=== PATIENT | female | born 1965 | race Caucasian/White ===

== ENCOUNTER 2019-05-01 01:16 | Emergency (ER) | payer BC, OTHER ==
[2019-05-01] MEDS ORDERED: SODIUM CHLORIDE 0.9% 1000ML 2,000 ML IV ONE (01:49)
[2019-05-01] MEDS ORDERED: KETOROLAC TROMETHAMINE 30MG/ML ONE (01:49)
[2019-05-01 02:02] LABS: BASOPHILS % (AUTO) 0.2 % (0.0-5.0); EOSINOPHILS % (AUTO) 3.8 % (0.0-8.0); HEMATOCRIT 45.9 % (36-48); LYMPHOCYTES % (AUTO) 35.1 % (21.0-51.0); MEAN CORPUSCULAR HEMOGLOBIN 26.5 pg (27.0-33.0); MEAN CORPUSCULAR HGB CONC 32.9 g/dL (32.0-36.0); MEAN CORPUSCULAR VOLUME 80.6 fL (79-99); MONOCYTES % (AUTO) 10.1 % (3.0-13.0); NEUTROPHILS % (AUTO) 50.8 % (40.0-77.0); PLATELET COUNT (AUTO) 236 K/uL (130-400); RED CELL DISTRIBUTION WIDTH 16.5 % (11.0-15.5); WHITE BLOOD COUNT (AUTO) 8.2 K/uL (4.8-10.8)
[2019-05-01 02:10] LABS: APPEARANCE,URINE CLEAR (CLEAR); BILIRUBIN,URINE NEGATIVE (NEGATIVE); COLOR,URINE YELLOW (YELLOW); GLUCOSE, URINE (UA) NEGATIVE (NEGATIVE); KETONES,URINE 15 mg/dL (NEGATIVE); LEUKOCYTE ESTERASE ,URINE NEGATIVE (NEGATIVE); NITRATE,URINE NEGATIVE (NEGATIVE); OCCULT BLOOD,URINE NEGATIVE (NEGATIVE); PROTEIN,URINE NEGATIVE (NEGATIVE); UROBILINOGEN,URINE 0.2 mg/dL (0.2-1.0)
[2019-05-01 02:18] LABS: CREATININE 0.8 mg/dL (0.5-1.5); HCG,QUAL RESULT NEGATIVE (NEGATIVE)
[2019-05-01 02:23] LABS: ALBUMIN 3.6 g/dL (3.5-5.0); BILIRUBIN,TOTAL 0.3 mg/dL (0.2-1.0); TOTAL PROTEIN, SERUM 7.6 g/dL (6.0-8.3)
[2019-05-01] MEDS ORDERED: ORPHENADRINE CITRATE 30 MG/ML ML ONE (02:32)
[2019-05-01] MEDS ORDERED: LIDOCAINE 5% TOPICAL PATCH TP ONE (02:32)
== END 2019-05-01 03:39 | disposition home or self-care (01) ==
LOC: EDH 01:16
DX: M62.830 Muscle spasm of back (principal); M54.5 Low back pain; M54.6 Pain in thoracic spine; I25.10 Atherosclerotic heart disease of native coronary artery without angina pectoris; E07.9 Disorder of thyroid, unspecified; Z79.899 Other long term (current) drug therapy
CPT/HCPCS: 36415; 72070; 80053; 81003; 81025; 83690; 85025; 96374; 96375; 99285; J1885; J2360; J7030

== ENCOUNTER → 2020-12-28 | Outpatient (CLI) | payer BC | END | disposition home or self-care (01) | LOC: OIH 13:44 | PROVIDERS: ATTEND Allergy & Immunology | DX: J18.8 Other pneumonia, unspecified organism (principal); I51.7 Cardiomegaly; R91.8 Other nonspecific abnormal finding of lung field; J45.40 Moderate persistent asthma, uncomplicated | CPT/HCPCS: 71046 ==

== ENCOUNTER → 2021-01-19 | Outpatient (CLI) | payer BC ==
[~2021-01-19] MED LIST: IOHEXOL-350 75 ML VIAL IV ONE
== END | disposition home or self-care (01) ==
LOC: RAH 12:38
PROVIDERS: ATTEND Internal Medicine
DX: R91.8 Other nonspecific abnormal finding of lung field (principal); R59.0 Localized enlarged lymph nodes; J45.909 Unspecified asthma, uncomplicated; R06.00 Dyspnea, unspecified; R06.02 Shortness of breath; J98.11 Atelectasis; I51.7 Cardiomegaly
CPT/HCPCS: 71270; Q9967

== ENCOUNTER 2021-02-19 21:35 | Inpatient (IN) | payer BC ==
[~2021-02-19] VITALS: Ht 172.7 cm; Wt 200.7 kg
[2021-02-19 22:49] LABS: BASOPHILS % (AUTO) 0.2 % (0.0-5.0); EOSINOPHILS % (AUTO) 32.9 % (0.0-8.0); HEMATOCRIT 35.5 % (36-48); LYMPHOCYTES % (AUTO) 14.7 % (21.0-51.0); MEAN CORPUSCULAR HEMOGLOBIN 21.7 pg (27.0-33.0); MEAN CORPUSCULAR HGB CONC 29.6 g/dL (32.0-36.0); MEAN CORPUSCULAR VOLUME 73.3 fL (79-99); MONOCYTES % (AUTO) 8.2 % (3.0-13.0); NEUTROPHILS % (AUTO) 43.6 % (40.0-77.0); PLATELET COUNT (AUTO) 406 K/uL (130-400); RED BLOOD CELL COUNT(AUTO) 4.84 MIL/uL (4.00-5.50); RED CELL DISTRIBUTION WIDTH 20.4 % (11.0-15.5); WHITE BLOOD COUNT (AUTO) 13.1 K/uL (4.8-10.8)
[2021-02-19 22:59] LABS: ABG BASE EXCESS 4.5 mmol/L (-2.0-3.0); ABG HCO3 29.8 mmol/L (21.0-28.0); ABG OXYGEN SATURATION 91.6 % (95.0-99.0); ABG PCO2 46 mmHg (32-45)
[2021-02-19 23:01] LABS: POTASSIUM 3.4 mmol/L (3.5-5.1)
[2021-02-19 23:06] LABS: ALBUMIN 3.2 g/dL (3.5-5.0); BILIRUBIN,TOTAL 0.4 mg/dL (0.2-1.0); TOTAL PROTEIN, SERUM 8.4 g/dL (6.0-8.3)
[2021-02-19] MEDS ORDERED: FUROSEMIDE 40MG VIAL ONE (23:09)
[2021-02-19 23:10] LABS: INR 1.11 (0.85-1.15)
[2021-02-19 23:26] LABS: B-TYPE NATRIURETIC PEPTIDE 242 pg/mL (0-100)
[2021-02-19] MEDS ORDERED: ASPIRIN 325 MG TABLET ONE (23:46)
[2021-02-19] MEDS ORDERED: ALBUTEROL INHALER 90MCG/INH IH ONE (23:46)
[2021-02-19] MEDS ORDERED: AZITHROMYCIN 500MG+NS 250ML 250 ML IV ONE (23:55)
[2021-02-19] MEDS ORDERED: CEFTRIAXONE 1G VIAL ONE (23:55)
[2021-02-20 00:20] LABS: APPEARANCE,URINE Clear (CLEAR); BILIRUBIN,URINE Negative (NEGATIVE); COLOR,URINE Yellow (YELLOW); GLUCOSE, URINE (UA) Negative (NEGATIVE); KETONES,URINE Negative (NEGATIVE); LEUKOCYTE ESTERASE ,URINE Trace (NEGATIVE); NITRATE,URINE Negative (NEGATIVE); OCCULT BLOOD,URINE Negative (NEGATIVE); PROTEIN,URINE Negative (NEGATIVE); UROBILINOGEN,URINE 0.2 mg/dL (0.2-1.0)
[2021-02-20 00:33] LABS: AMPHET/METH SCREEN,URINE NEGATIVE (NEGATIVE); BACTERIA,URINE None Seen /HPF (None Seen); BARBITURATE SCREEN, URINE NEGATIVE (NEGATIVE); BENZODIAZEPINES SCREEN,URINE NEGATIVE (NEGATIVE); CANNABINOID SCREEN,URINE NEGATIVE (NEGATIVE); COCAINE SCREEN,URINE NEGATIVE (NEGATIVE); OPIATE SCREEN,URINE NEGATIVE (NEGATIVE); PHENCYCLIDINE SCREEN,URINE NEGATIVE (NEGATIVE); RBC,URINE None Seen /HPF (0-1); WBC,URINE 0-1 /HPF (0-1)
[2021-02-20] MEDS ORDERED: LACTULOSE 20 GM/30 ML UDCUP PO PRN (01:00)
[2021-02-20] MEDS: SOLU-MEDROL 125MG VIAL IV SCH ×3 (01:00→16:30)
[2021-02-20] MEDS ORDERED: DIPHENHYDRAMINE HCL 25 MG CAPSULE PO PRN (01:00)
[2021-02-20] MEDS ORDERED: ONDANSETRON 4MG INJ IV PRN (01:00)
[2021-02-20] MEDS: METOPROLOL TARTRATE 25 MG TAB PO SCH ×3 (01:00→21:00)
[2021-02-20] MEDS ORDERED: GUAIFENESIN-DM 200/20 MG 10 ML PO PRN (01:00)
[2021-02-20] MEDS ORDERED: MAG/ALUM/SIMETH 30 ML UDCUP PO PRN (01:00)
[2021-02-20] MEDS ORDERED: ACETAMINOPHEN 325 MG TAB PO PRN ×2 (01:00)
[2021-02-20] MEDS ORDERED: DiphenhydrAMINE HCL 50 MG/ML VIAL IV PRN (01:00)
[2021-02-20] MEDS ORDERED: NITROGLYCERIN 0.4 MG SL TAB SL PRN (01:00)
[2021-02-20] MEDS ORDERED: HEPARIN 25,000 UNITS/250ML D5W 250 ML IV SCH (01:15)
[2021-02-20] MEDS: MONTELUKAST SODIUM 10 MG TAB PO SCH ×2 (01:15→21:00)
[2021-02-20] MEDS ORDERED: HEPARIN 25,000 UNITS/250ML D5W 250 ML IV ONE (01:18)
[2021-02-20] MEDS ORDERED: HEPARIN 5,000 UNIT VIAL ONE (01:19)
[2021-02-20] MEDS: IPRATROPIUM/ALBUTEROL SULFATE 3 ML SOLUTION IH SCH ×3 (02:00→22:00)
[2021-02-20] MEDS ORDERED: SOLU-MEDROL 40MG VIAL ONE (02:21)
[2021-02-20] MEDS ORDERED: METOPROLOL TARTRATE 25 MG TAB ONE (02:22)
[2021-02-20 04:00] VITALS: BP 134/84
[2021-02-20 05:42] LABS: BASOPHILS % (AUTO) 0.2 % (0.0-5.0); EOSINOPHILS % (AUTO) 25.8 % (0.0-8.0); HEMATOCRIT 35.3 % (36-48); LYMPHOCYTES % (AUTO) 8.2 % (21.0-51.0); MEAN CORPUSCULAR HEMOGLOBIN 21.6 pg (27.0-33.0); MEAN CORPUSCULAR HGB CONC 29.7 g/dL (32.0-36.0); MEAN CORPUSCULAR VOLUME 72.8 fL (79-99); MONOCYTES % (AUTO) 5.8 % (3.0-13.0); NEUTROPHILS % (AUTO) 59.4 % (40.0-77.0); PLATELET COUNT (AUTO) 370 K/uL (130-400); RED BLOOD CELL COUNT(AUTO) 4.85 MIL/uL (4.00-5.50)
[2021-02-20 06:21] LABS: BILIRUBIN,TOTAL 0.4 mg/dL (0.2-1.0); CREATININE 0.8 mg/dL (0.5-1.5); POTASSIUM 3.9 mmol/L (3.5-5.1)
[2021-02-20] MEDS: FUROSEMIDE 40MG VIAL IVP SCH ×2 (07:41→21:08)
[2021-02-20] MEDS: ASPIRIN 325 MG TABLET PO SCH (07:41)
[2021-02-20 08:00] VITALS: BP 144/89
[2021-02-20] MEDS ORDERED: FAMOTIDINE 20MG VIAL IV SCH (09:00)
[2021-02-20] MEDS ORDERED: HEPARIN 5,000 UNIT VIAL SQ SCH (09:00)
[2021-02-20 09:48] LABS: INR 1.29 (0.85-1.15); PROTHROMBIN TIME 13.7 SEC (9.6-11.6)
[2021-02-20] MEDS ORDERED: HYDR-3830 PO (09:48)
[2021-02-20] MEDS ORDERED: MONT10TA21 PO (09:48)
[2021-02-20] MEDS ORDERED: [UNRECOGNIZED DRUG - OTHER] PO (09:48)
[2021-02-20] MEDS ORDERED: THYR120T2 PO (09:48)
[2021-02-20] MEDS ORDERED: CETI10TA57 PO (09:48)
[2021-02-20] MEDS ORDERED: FLUT1BLS15 IH (09:48)
[2021-02-20] MEDS ORDERED: ASPI-1197 PO (09:48)
[2021-02-20] MEDS ORDERED: METO25TA6 PO (09:48)
[2021-02-20] MEDS ORDERED: MAGN30TA2 PO (09:48)
[2021-02-20] MEDS ORDERED: PANT40TA PO (09:48)
[2021-02-20 10:39] LABS: PARTIAL THROMBOPLASTIN TIME 19.5 SEC (26.3-35.5)
[2021-02-20 11:38] VITALS: BP 126/75
[2021-02-20] MEDS: ENOXAPARIN SODIUM 120 MG/0.8ML SQ SCH ×2 (11:55→21:10)
[2021-02-20] MEDS: ENOXAPARIN SODIUM 30 MG/0.3 ML SQ SCH ×2 (11:55→21:11)
[2021-02-20 16:00] VITALS: BP 124/81
[2021-02-20 19:29] VITALS: BP 152/74
[2021-02-20] MEDS: HYDROXYZINE 10 MG TABLET PO SCH (21:00)
[2021-02-20] MEDS ORDERED: MONTELUKAST SODIUM 10 MG TAB PO SCH (21:00)
[2021-02-20] MEDS: MAGNESIUM PO SCH (21:00)
[2021-02-20] MEDS: ENOXAPARIN SODIUM 1 MG/KG SQ SCH (21:00)
[2021-02-20 23:57] VITALS: BP 104/50
[2021-02-21] MEDS: SOLU-MEDROL 125MG VIAL IV SCH ×4 (00:50→23:47)
[2021-02-21] MEDS: IPRATROPIUM/ALBUTEROL SULFATE 3 ML SOLUTION IH SCH (02:00)
[2021-02-21 03:33] VITALS: BP 142/58
[2021-02-21 05:36] LABS: BASOPHILS % (AUTO) 0.1 % (0.0-5.0); EOSINOPHILS % (AUTO) 0.1 % (0.0-8.0); HEMATOCRIT 32.9 % (36-48); LYMPHOCYTES % (AUTO) 7.3 % (21.0-51.0); MEAN CORPUSCULAR HEMOGLOBIN 21.7 pg (27.0-33.0); MEAN CORPUSCULAR HGB CONC 29.8 g/dL (32.0-36.0); MEAN CORPUSCULAR VOLUME 72.9 fL (79-99); MONOCYTES % (AUTO) 4.3 % (3.0-13.0); NEUTROPHILS % (AUTO) 87.5 % (40.0-77.0); PLATELET COUNT (AUTO) 352 K/uL (130-400); RED BLOOD CELL COUNT(AUTO) 4.51 MIL/uL (4.00-5.50); RED CELL DISTRIBUTION WIDTH 19.9 % (11.0-15.5); WHITE BLOOD COUNT (AUTO) 11.8 K/uL (4.8-10.8)
[2021-02-21 05:55] LABS: ALBUMIN 2.9 g/dL (3.5-5.0); BILIRUBIN,TOTAL 0.4 mg/dL (0.2-1.0); CREATININE 0.9 mg/dL (0.5-1.5); TOTAL PROTEIN, SERUM 7.6 g/dL (6.0-8.3)
[2021-02-21] MEDS ORDERED: THYROID PORK 120 MG PO SCH (07:30)
[2021-02-21 08:00] VITALS: BP 112/66
[2021-02-21] MEDS: (Fluticasone/Umeclidin/Vilanter (Trelegy Ellipta 200-62.5- IH SCH (08:45)
[2021-02-21] MEDS: ASPIRIN 325 MG TABLET PO SCH (08:46)
[2021-02-21] MEDS: FUROSEMIDE 40MG VIAL IVP SCH ×2 (08:46→20:03)
[2021-02-21] MEDS: METOPROLOL TARTRATE 25 MG TAB PO SCH ×2 (08:46→20:12)
[2021-02-21] MEDS: ENOXAPARIN SODIUM 30 MG/0.3 ML SQ SCH ×2 (08:47→20:13)
[2021-02-21] MEDS: ENOXAPARIN SODIUM 120 MG/0.8ML SQ SCH ×2 (08:47→20:13)
[2021-02-21] MEDS: ENOXAPARIN SODIUM 1 MG/KG SQ SCH ×2 (08:48→20:13)
[2021-02-21] MEDS: PANTOPRAZOLE 40 MG TAB DR PO SCH (08:48)
[2021-02-21] MEDS: MAGNESIUM PO SCH ×2 (08:48→20:12)
[2021-02-21] MEDS ORDERED: VILANTER IH SCH (09:00)
[2021-02-21] MEDS ORDERED: FLUTICASONE IH SCH (09:00)
[2021-02-21] MEDS ORDERED: [UNRECOGNIZED DRUG - OTHER] IH SCH (09:00)
[2021-02-21] MEDS ORDERED: UMECLIDIN IH SCH (09:00)
[2021-02-21] MEDS: FLUTICASONE PROPIONATE 50MCG/SPRAY 16 GM BOTTLE EN SCH ×2 (10:09→20:14)
[2021-02-21 11:47] VITALS: BP 135/76
[2021-02-21] MEDS ORDERED: IPRATROPIUM/ALBUTEROL SULFATE 3 ML SOLUTION IH PRN (12:00)
[2021-02-21] MEDS ORDERED: REGADENOSON 0.4 MG/5 ML PF SYG IVP SCH (15:30)
[2021-02-21 16:00] VITALS: BP 102/58
[2021-02-21] MEDS ORDERED: DiphenhydrAMINE HCL 50 MG/ML VIAL IVP PRN (18:45)
[2021-02-21 19:55] LABS: HEMATOCRIT 34.9 % (36-48); MEAN CORPUSCULAR HEMOGLOBIN 21.8 pg (27.0-33.0); MEAN CORPUSCULAR HGB CONC 29.8 g/dL (32.0-36.0); MEAN CORPUSCULAR VOLUME 73.2 fL (79-99); RED BLOOD CELL COUNT(AUTO) 4.77 MIL/uL (4.00-5.50); RED CELL DISTRIBUTION WIDTH 20.5 % (11.0-15.5); WHITE BLOOD COUNT (AUTO) 13.2 K/uL (4.8-10.8)
[2021-02-21] MEDS: 0.9%NACL 1000ML 1,000 ML IV SCH (20:01)
[2021-02-21 20:05] LABS: CREATININE 0.9 mg/dL (0.5-1.5); POTASSIUM 3.7 mmol/L (3.5-5.1)
[2021-02-21 20:08] LABS: INR 1.16 (0.85-1.15); PROTHROMBIN TIME 12.5 SEC (9.6-11.6)
[2021-02-21 20:09] LABS: PARTIAL THROMBOPLASTIN TIME 25.4 SEC (26.3-35.5)
[2021-02-21] MEDS: MONTELUKAST SODIUM 10 MG TAB PO SCH (20:12)
[2021-02-21] MEDS: HYDROXYZINE 10 MG TABLET PO SCH (20:12)
[2021-02-21 21:34] VITALS: BP 134/77
[2021-02-22] VITALS (12 sets, daily range): BP systolic 111–188; BP diastolic 68–84
[2021-02-22 04:21] LABS: BASOPHILS % (AUTO) 0.1 % (0.0-5.0); HEMATOCRIT 35.9 % (36-48); MEAN CORPUSCULAR HEMOGLOBIN 21.7 pg (27.0-33.0); MEAN CORPUSCULAR HGB CONC 29.2 g/dL (32.0-36.0); MEAN CORPUSCULAR VOLUME 74.2 fL (79-99); MONOCYTES % (AUTO) 4.7 % (3.0-13.0); NEUTROPHILS % (AUTO) 89.3 % (40.0-77.0); PLATELET COUNT (AUTO) 452 K/uL (130-400); RED BLOOD CELL COUNT(AUTO) 4.84 MIL/uL (4.00-5.50); RED CELL DISTRIBUTION WIDTH 20.5 % (11.0-15.5); WHITE BLOOD COUNT (AUTO) 14.3 K/uL (4.8-10.8)
[2021-02-22] MEDS: 0.9%NACL 1000ML 1,000 ML IV SCH ×2 (04:41→14:45)
[2021-02-22 04:44] LABS: ALBUMIN 3.2 g/dL (3.5-5.0); BILIRUBIN,TOTAL 0.3 mg/dL (0.2-1.0); CREATININE 0.9 mg/dL (0.5-1.5); MAGNESIUM 2.2 mg/dL (1.80-2.40); POTASSIUM 3.9 mmol/L (3.5-5.1); TOTAL PROTEIN, SERUM 8.2 g/dL (6.0-8.3)
[2021-02-22] MEDS: FLUTICASONE PROPIONATE 50MCG/SPRAY 16 GM BOTTLE EN SCH ×2 (08:37→21:00)
[2021-02-22] MEDS: SOLU-MEDROL 125MG VIAL IV SCH (08:38)
[2021-02-22] MEDS: FUROSEMIDE 40MG VIAL IVP SCH (08:38)
[2021-02-22] MEDS: METOPROLOL TARTRATE 25 MG TAB PO SCH ×2 (08:38→21:00)
[2021-02-22] MEDS: (Fluticasone/Umeclidin/Vilanter (Trelegy Ellipta 200-62.5- IH SCH (08:39)
[2021-02-22] MEDS: ENOXAPARIN SODIUM 120 MG/0.8ML SQ SCH (09:00)
[2021-02-22] MEDS: PANTOPRAZOLE 40 MG TAB DR PO SCH (09:00)
[2021-02-22] MEDS: MAGNESIUM PO SCH ×2 (09:00→21:00)
[2021-02-22] MEDS: ASPIRIN 325 MG TABLET PO SCH (09:00)
[2021-02-22] MEDS: ENOXAPARIN SODIUM 1 MG/KG SQ SCH (09:00)
[2021-02-22] MEDS: ENOXAPARIN SODIUM 30 MG/0.3 ML SQ SCH (09:00)
[2021-02-22] MEDS ORDERED: NITROGLYCERIN 2 MG VIAL IV ONE (14:47)
[2021-02-22] MEDS ORDERED: BIVALIRUDIN 250 MG/VIAL IV ONE (14:47)
[2021-02-22] MEDS ORDERED: HEPARIN 1,000 UNIT VIAL ONE (14:47)
[2021-02-22] MEDS ORDERED: LIDOCAINE HCL 400MG/20ML VIAL ONE (14:48)
[2021-02-22] MEDS ORDERED: IOHEXOL-350 50ML VIAL IV ONE ×2 (14:48→15:05)
[2021-02-22] MEDS ORDERED: IOHEXOL 350 MG/ML 100ML INFUS..BTL IV ONE (14:48)
[2021-02-22] MEDS ORDERED: FENTANYL CITRATE PF 50 MCG/1 ML 2ML VIAL ONE (14:48)
[2021-02-22] MEDS ORDERED: MIDAZOLAM HCL 1 MG/ML 2ML VIAL ONE (14:48)
[2021-02-22] MEDS ORDERED: DiphenhydrAMINE HCL 50 MG/ML VIAL ONE (14:53)
[2021-02-22] MEDS ORDERED: NICARDIPINE 25MG INJ IV ONE (14:57)
[2021-02-22] MEDS ORDERED: HEPARIN 10,000 UNIT/10ML (1,000 UNIT/ML) VIAL ONE (14:59)
[2021-02-22] MEDS ORDERED: 0.9%NACL 1000ML 1,000 ML IV SCH (16:00)
[2021-02-22] MEDS: MONTELUKAST SODIUM 10 MG TAB PO SCH (21:00)
[2021-02-22] MEDS: HYDROXYZINE 10 MG TABLET PO SCH (21:00)
[2021-02-23 00:44] LABS: EOSINOPHILS % (AUTO) 0.1 % (0.0-8.0); HEMATOCRIT 34.8 % (36-48); LYMPHOCYTES % (AUTO) 12.6 % (21.0-51.0); MEAN CORPUSCULAR HEMOGLOBIN 21.4 pg (27.0-33.0); MEAN CORPUSCULAR VOLUME 73.6 fL (79-99); MONOCYTES % (AUTO) 15.6 % (3.0-13.0); NEUTROPHILS % (AUTO) 71.3 % (40.0-77.0); PLATELET COUNT (AUTO) 401 K/uL (130-400); RED BLOOD CELL COUNT(AUTO) 4.73 MIL/uL (4.00-5.50); RED CELL DISTRIBUTION WIDTH 20.3 % (11.0-15.5)
[2021-02-23 00:50] LABS: CREATININE 0.8 mg/dL (0.5-1.5); POTASSIUM 3.5 mmol/L (3.5-5.1)
[2021-02-23 01:10] VITALS: BP 119/57
[2021-02-23 05:08] LABS: HEMATOCRIT 34.1 % (36-48); MEAN CORPUSCULAR HEMOGLOBIN 21.6 pg (27.0-33.0); MEAN CORPUSCULAR HGB CONC 29.3 g/dL (32.0-36.0); MEAN CORPUSCULAR VOLUME 73.7 fL (79-99); RED BLOOD CELL COUNT(AUTO) 4.63 MIL/uL (4.00-5.50); RED CELL DISTRIBUTION WIDTH 20.3 % (11.0-15.5); WHITE BLOOD COUNT (AUTO) 10.5 K/uL (4.8-10.8)
[2021-02-23 05:26] LABS: CREATININE 0.7 mg/dL (0.5-1.5); MAGNESIUM 2.3 mg/dL (1.80-2.40); POTASSIUM 3.6 mmol/L (3.5-5.1)
[2021-02-23 06:08] VITALS: BP 125/77
[2021-02-23] MEDS ORDERED: KCL 20 MEQ ERTAB PO SCH (07:45)
[2021-02-23 08:17] VITALS: BP 95/42
[2021-02-23] MEDS ORDERED: PREDNISONE 20 MG TABLET PO SCH (09:00)
[2021-02-23] MEDS ORDERED: FUROSEMIDE 40 MG TABLET PO SCH (09:00)
[2021-02-23] MEDS ORDERED: ASPIRIN 81MG CHEW TAB PO SCH (09:00)
[2021-02-23] MEDS: PANTOPRAZOLE 40 MG TAB DR PO SCH (09:13)
[2021-02-23] MEDS: METOPROLOL TARTRATE 25 MG TAB PO SCH (09:14)
[2021-02-23] MEDS: FLUTICASONE PROPIONATE 50MCG/SPRAY 16 GM BOTTLE EN SCH (09:15)
[2021-02-23] MEDS: (Fluticasone/Umeclidin/Vilanter (Trelegy Ellipta 200-62.5- IH SCH (09:15)
[2021-02-23] MEDS: MAGNESIUM PO SCH (09:16)
[2021-02-23] MEDS ORDERED: PRED20TA3 PO (11:12)
[2021-02-23] MEDS ORDERED: FURO40TA7 PO (11:12)
[2021-02-23 11:55] VITALS: BP 128/62
[2021-02-23 16:00] VITALS: BP 124/68
== END 2021-02-23 17:30 | disposition home or self-care (01) | DRG 280 ==
LOC: EDH 21:35 → EDHIP 02-20 00:55 → 4DH 02-20 03:26
PROVIDERS: ADMIT Family Medicine; ATTEND Family Medicine
PROC: 4A023N7 Measurement of Cardiac Sampling and Pressure, Left Heart, Percutaneous Approach (ICD-10-PCS; principal; 2021-02-22)
PROC: B2111ZZ Fluoroscopy of Multiple Coronary Arteries using Low Osmolar Contrast (ICD-10-PCS; 2021-02-22)
PROC: B2151ZZ Fluoroscopy of Left Heart using Low Osmolar Contrast (ICD-10-PCS; 2021-02-22)
DX: I11.0 Hypertensive heart disease with heart failure (principal); I21.4 Non-ST elevation (NSTEMI) myocardial infarction; J96.21 Acute and chronic respiratory failure with hypoxia; Z68.44 Body mass index [BMI] 60.0-69.9, adult; M30.1 Polyarteritis with lung involvement [Churg-Strauss]; I31.3 Pericardial effusion (noninflammatory); J67.9 Hypersensitivity pneumonitis due to unspecified organic dust; J82.83 Eosinophilic asthma; J82.82 Acute eosinophilic pneumonia; I50.33 Acute on chronic diastolic (congestive) heart failure; I50.9 Heart failure, unspecified; E66.01 Morbid (severe) obesity due to excess calories; D72.10 Eosinophilia, unspecified; E03.9 Hypothyroidism, unspecified; D50.9 Iron deficiency anemia, unspecified; L92.0 Granuloma annulare; M19.90 Unspecified osteoarthritis, unspecified site; E78.5 Hyperlipidemia, unspecified; Z20.822 Contact with and (suspected) exposure to COVID-19; Z99.81 Dependence on supplemental oxygen
CPT/HCPCS: 36415; 36600; 71045; 71250; 78452; 80048; 80053; 80305; 81001; 82550; 82785; 82803; 83605; 83690; 83735; 83880; 84439; 84443; 84481; 84484; 85025; 85027; 85610; 85651; 85730; 86038; 86140; 86215; 86235; 86255; 86606; 87040; 87426; 87804; 93005; 93017; 93306; 93356; 93458; 93970; 94664; 96374; 99156; 99157; A9500; C1769; G0378; J0456; J0583; J0696; J1200; J1644; J1650; J1940; J2250; J2785; J2920; J2930; J3010; J3490; Q9967; U0003

== ENCOUNTER → 2021-03-07 | Outpatient (CLI) | payer BC ==
[~2021-03-07] MED LIST changes: +ASPI-1197 PO; +CETI10TA57 PO; +FLUT1BLS15 IH; +FURO40TA7 PO; +HYDR-3830 PO; -IOHEXOL-350 75 ML VIAL IV ONE; +MAGN30TA2 PO; +METO25TA6 PO; +MONT10TA21 PO; +PANT40TA PO; +PRED20TA3 PO; +THYR120T2 PO; +[UNRECOGNIZED DRUG - OTHER] PO
[2021-03-07 14:00] LABS: BASOPHILS % (AUTO) 0.3 % (0.0-5.0); EOSINOPHILS % (AUTO) 5.9 % (0.0-8.0); LYMPHOCYTES % (AUTO) 18.8 % (21.0-51.0); MEAN CORPUSCULAR HEMOGLOBIN 21.6 pg (27.0-33.0); MEAN CORPUSCULAR HGB CONC 29.2 g/dL (32.0-36.0); MEAN CORPUSCULAR VOLUME 73.7 fL (79-99); MONOCYTES % (AUTO) 9.8 % (3.0-13.0); NEUTROPHILS % (AUTO) 64.6 % (40.0-77.0); PLATELET COUNT (AUTO) 378 K/uL (130-400); RED BLOOD CELL COUNT(AUTO) 5.29 MIL/uL (4.00-5.50); RED CELL DISTRIBUTION WIDTH 21.6 % (11.0-15.5); WHITE BLOOD COUNT (AUTO) 9.4 K/uL (4.8-10.8)
== END | disposition home or self-care (01) ==
LOC: RAH 13:04
PROVIDERS: ATTEND Internal Medicine Critical Care Medicine
DX: J45.50 Severe persistent asthma, uncomplicated (principal); J01.00 Acute maxillary sinusitis, unspecified
CPT/HCPCS: 36415; 70486; 85025; 86038; 86215; 86235; 86606

== ENCOUNTER → 2021-05-08 | Outpatient (CLI) | payer BC | END | disposition home or self-care (01) | LOC: RAH 10:09 | PROVIDERS: ATTEND Family Medicine | DX: I82.812 Embolism and thrombosis of superficial veins of left lower extremity (principal) | CPT/HCPCS: 93970 ==

== ENCOUNTER 2022-10-09 20:06 | Emergency (ER) | payer BC ==
[~2022-10-09] VITALS: Ht 177.8 cm; Wt 215.5 kg
[2022-10-09 21:24] LABS: BASOPHILS % (AUTO) 0.2 % (0.0-5.0); EOSINOPHILS % (AUTO) 0.4 % (0.0-8.0); HEMATOCRIT 37.9 % (36-48); LYMPHOCYTES % (AUTO) 22.8 % (21.0-51.0); MEAN CORPUSCULAR HEMOGLOBIN 23.4 pg (27.0-33.0); MEAN CORPUSCULAR HGB CONC 30.6 g/dL (32.0-36.0); MEAN CORPUSCULAR VOLUME 76.6 fL (79-99); MONOCYTES % (AUTO) 10.9 % (3.0-13.0); NEUTROPHILS % (AUTO) 65.2 % (40.0-77.0); PLATELET COUNT (AUTO) 311 K/uL (130-400); RED BLOOD CELL COUNT(AUTO) 4.95 MIL/uL (4.00-5.50); RED CELL DISTRIBUTION WIDTH 19.1 % (11.0-15.5)
[2022-10-09 21:36] LABS: CREATININE 0.8 mg/dL (0.5-1.5); POTASSIUM 4.5 mmol/L (3.5-5.1)
[2022-10-09 21:41] LABS: ALBUMIN 3.4 g/dL (3.5-5.0); TOTAL PROTEIN, SERUM 7.4 g/dL (6.0-8.3)
[2022-10-09] MEDS ORDERED: IOHEXOL 350 MG/ML 100ML INFUS..BTL IV ONE (22:44)
[2022-10-10] MEDS ORDERED: CELE400C10 PO (00:18)
[2022-10-10] MEDS ORDERED: METH-662 PO (00:18)
[2022-10-10 00:30] VITALS: BP 124/51
== END 2022-10-10 00:52 | disposition home or self-care (01) ==
LOC: EDH 20:06
DX: M54.9 Dorsalgia, unspecified (principal); I49.3 Ventricular premature depolarization; E66.01 Morbid (severe) obesity due to excess calories; Z68.44 Body mass index [BMI] 60.0-69.9, adult; I48.91 Unspecified atrial fibrillation; R07.89 Other chest pain; Z98.890 Other specified postprocedural states; Z79.82 Long term (current) use of aspirin; Z79.899 Other long term (current) drug therapy
CPT/HCPCS: 99284; 71275; 71045; 83735; 84484; 80053; 85025; 36415; 93005; Q9967

== ENCOUNTER → 2023-04-09 | Outpatient (CLI) | payer BC ==
[~2023-04-09] MED LIST changes: +AEC81 PO; +CELE400C10 PO; +FLUT16H NASAL; +FLUT50BL IH; +FURO40TA5 PO; +ISOS30TA92 PO; +LACT1CAP80 PO; +LEVO300T4 PO; +MAGNESIUM PO; +METF-444 PO; +METH-662 PO; +MONT-39 PO; +MONT-47 PO; -MONT10TA21 PO; +PANT40TA54 PO; +POTASSIUM PO; +PROG200C11 PO; +SULF1TAB89 PO; +VITA100049 PO
== END | disposition home or self-care (01) ==
LOC: RAH 15:14
PROVIDERS: ATTEND Internal Medicine Critical Care Medicine
DX: J82.81 Chronic eosinophilic pneumonia (principal); K76.0 Fatty (change of) liver, not elsewhere classified
CPT/HCPCS: 71250

== ENCOUNTER → 2023-09-13 | Outpatient (CLI) | payer BC ==
[~2023-09-13] MED LIST changes: -CELE400C10 PO; +CELE400C16 PO
== END | disposition home or self-care (01) ==
LOC: RAH 10:04
PROVIDERS: ATTEND Obstetrics & Gynecology
DX: D25.9 Leiomyoma of uterus, unspecified (principal); R93.89 Abnormal findings on diagnostic imaging of other specified body structures; N93.8 Other specified abnormal uterine and vaginal bleeding
CPT/HCPCS: 76830

== ENCOUNTER → 2023-11-28 | Outpatient (CLI) | payer BC | END | disposition home or self-care (01) | LOC: RAH 15:19 | PROVIDERS: ATTEND Obstetrics & Gynecology | DX: Z12.31 Encounter for screening mammogram for malignant neoplasm of breast (principal) | CPT/HCPCS: 77067 ==

== ENCOUNTER → 2024-07-24 | Outpatient (CLI) | payer BC ==
[~2024-07-24] MED LIST changes: -VITA100049 PO; +VITA100059 PO
== END | disposition home or self-care (01) ==
LOC: LAB 12:22
PROVIDERS: ATTEND Internal Medicine Nephrology
DX: R07.9 Chest pain, unspecified (principal); R06.00 Dyspnea, unspecified
CPT/HCPCS: 71045; 93005

== ENCOUNTER 2024-08-13 09:31 | Emergency (ER) | payer BC ==
[~2024-08-13] VITALS: Ht 170.2 cm; Wt 204.1 kg
[2024-08-13 09:36] VITALS: TEMP 98.5
[2024-08-13 09:51] LABS: BASOPHILS # (AUTO) 0.02 K/uL (0.00-0.20); BASOPHILS % (AUTO) 0.2 % (0.0-5.0); EOSINOPHILS # (AUTO) 0.07 K/uL (0.00-0.70); EOSINOPHILS % (AUTO) 0.8 % (0.0-8.0); IMMATURE GRANULOCYTE ABSOLUTE 0.01 K/uL (0-1); LYMPHOCYTES # (AUTO) 4.1 K/uL (1.0-4.8); MEAN CORPUSCULAR HEMOGLOBIN 27.4 pg (27.0-33.0); MEAN CORPUSCULAR HGB CONC 31.6 g/dL (32.0-36.0); MEAN CORPUSCULAR VOLUME 86.7 fL (79-99); MONOCYTES # (AUTO) 0.9 K/uL (0.1-1.0); MONOCYTES % (AUTO) 9.9 % (3.0-13.0); NEUTROPHILS # (AUTO) 4.2 K/uL (1.8-7.7); PLATELET COUNT (AUTO) 314 K/uL (130-400); RED BLOOD CELL COUNT(AUTO) 5.19 MIL/uL (4.00-5.50); RED CELL DISTRIBUTION WIDTH 15.6 % (11.0-15.5); WHITE BLOOD COUNT (AUTO) 9.3 K/uL (4.8-10.8)
[2024-08-13 09:59] LABS: CREATININE 0.9 mg/dL (0.5-1.0)
[2024-08-13 10:04] LABS: ALBUMIN 3.5 g/dL (3.5-5.0); BILIRUBIN,TOTAL 0.5 mg/dL (0.2-1.0); TOTAL PROTEIN, SERUM 7.6 g/dL (6.0-8.3)
[2024-08-13 10:36] LABS: B-TYPE NATRIURETIC PEPTIDE 63 pg/mL (0-100)
[2024-08-13] MEDS: 0.9%NACL 1000ML 1,000 ML IV ONE (10:42)
[2024-08-13] MEDS: ADENOSINE 6MG VIAL IV ONE ×2 (10:43)
[2024-08-13 12:15] VITALS: BP 153/77; PULSE 114; RESP 21; O2SAT 95
[2024-08-13] MEDS: metoPROLOL tartRATE 50 MG TAB PO ONE (12:18)
== END 2024-08-13 12:45 | disposition home or self-care (01) ==
LOC: EDH 09:31
DX: I47.10 Supraventricular tachycardia, unspecified (principal); E11.9 Type 2 diabetes mellitus without complications; I10 Essential (primary) hypertension; E66.01 Morbid (severe) obesity due to excess calories; Z79.899 Other long term (current) drug therapy; Z79.82 Long term (current) use of aspirin; Z79.84 Long term (current) use of oral hypoglycemic drugs; Z68.30 Body mass index [BMI] 30.0-30.9, adult
CPT/HCPCS: 99284; 96374; 71045; 96361; 84484; 80053; 83880; 85025; 36415; 93005; J0153 ×2; J7030

== ENCOUNTER 2024-09-27 06:29 | Emergency (ER) | payer BC ==
[~2024-09-27] VITALS: Ht 177.8 cm; Wt 204.1 kg
[2024-09-27 06:41] VITALS: TEMP 98.3
[2024-09-27 06:50] LABS: BASOPHILS # (AUTO) 0.02 K/uL (0.00-0.20); BASOPHILS % (AUTO) 0.1 % (0.0-5.0); EOSINOPHILS # (AUTO) 0.05 K/uL (0.00-0.70); EOSINOPHILS % (AUTO) 0.3 % (0.0-8.0); HEMATOCRIT 41.4 % (36-48); IMMATURE GRANULOCYTE ABSOLUTE 0.11 K/uL (0-1); LYMPHOCYTES # (AUTO) 4.3 K/uL (1.0-4.8); LYMPHOCYTES % (AUTO) 28.4 % (21.0-51.0); MEAN CORPUSCULAR HEMOGLOBIN 27.8 pg (27.0-33.0); MEAN CORPUSCULAR HGB CONC 32.1 g/dL (32.0-36.0); MEAN CORPUSCULAR VOLUME 86.6 fL (79-99); MONOCYTES # (AUTO) 1.1 K/uL (0.1-1.0); MONOCYTES % (AUTO) 7.2 % (3.0-13.0); NEUTROPHILS # (AUTO) 9.6 K/uL (1.8-7.7); NEUTROPHILS % (AUTO) 63.3 % (40.0-77.0); PLATELET COUNT (AUTO) 239 K/uL (130-400); RED BLOOD CELL COUNT(AUTO) 4.78 MIL/uL (4.00-5.50); RED CELL DISTRIBUTION WIDTH 15.4 % (11.0-15.5); WHITE BLOOD COUNT (AUTO) 15.2 K/uL (4.8-10.8)
[2024-09-27 07:10] LABS: B-TYPE NATRIURETIC PEPTIDE 35 pg/mL (0-100)
[2024-09-27] MEDS: ASPIRIN 325MG TAB PO ONE (07:15)
[2024-09-27 07:16] LABS: PROTHROMBIN TIME 10.8 SEC (9.6-11.6)
[2024-09-27 07:18] LABS: PARTIAL THROMBOPLASTIN TIME 20.2 SEC (26.3-35.5)
[2024-09-27 07:19] LABS: CREATININE 0.8 mg/dL (0.5-1.0); POTASSIUM 4.5 mmol/L (3.5-5.1)
[2024-09-27 09:21] VITALS: BP 157/91; PULSE 95; RESP 20; O2SAT 95
[2024-09-27 09:43] LABS: APPEARANCE,URINE CLEAR (CLEAR); BILIRUBIN,URINE NEGATIVE (NEGATIVE); COLOR,URINE LIGHT-YELLOW (YELLOW); GLUCOSE, URINE (UA) NEGATIVE (NEGATIVE); KETONES,URINE NEGATIVE (NEGATIVE); LEUKOCYTE ESTERASE ,URINE NEGATIVE Leu/uL (NEGATIVE); NITRATE,URINE NEGATIVE (NEGATIVE); OCCULT BLOOD,URINE LARGE (NEGATIVE); PH,URINE 5.5 (5.0-8.0); PROTEIN,URINE NEGATIVE (NEGATIVE); UROBILINOGEN,URINE 0.2 mg/dL (0.2-1.0)
[2024-09-27 09:50] LABS: ADD UA MICROSCOPIC YES
[2024-09-27 09:55] LABS: BACTERIA,URINE RARE /HPF (None Seen); MUCUS,URINE RARE LPF (None Seen); RBC,URINE TNTC /HPF (0-1); SQUAMOUS EPITHELIAL CELL,UR RARE /HPF (0-2); WBC,URINE 0-1 /HPF (0-1)
== END 2024-09-27 10:51 | disposition home or self-care (01) ==
LOC: EDH 06:29
DX: I47.10 Supraventricular tachycardia, unspecified (principal); E11.9 Type 2 diabetes mellitus without complications; E66.9 Obesity, unspecified; I11.9 Hypertensive heart disease without heart failure; Z79.52 Long term (current) use of systemic steroids; Z79.82 Long term (current) use of aspirin; Z79.84 Long term (current) use of oral hypoglycemic drugs; Z79.899 Other long term (current) drug therapy; Z98.890 Other specified postprocedural states
CPT/HCPCS: 99284; 96374; 71045; 82550; 83735; 84484 ×2; 80048; 83880; 85025; 85610; 85730; 81001; 36415; 93005; J3490

== ENCOUNTER → 2024-10-01 | Outpatient (CLI) | payer BC | END | disposition home or self-care (01) | LOC: RAH 14:55 | PROVIDERS: ATTEND Internal Medicine Nephrology | DX: R25.2 Cramp and spasm (principal) | CPT/HCPCS: 93925; 93970 ==

== ENCOUNTER 2024-11-11 20:10 | Inpatient (IN) | payer BC ==
[~2024-11-11] VITALS: Ht 177.8 cm; Wt 247.3 kg
[2024-11-11] MEDS: ADENOSINE 6MG VIAL IV ONE ×4 (20:20→22:54)
[2024-11-11 20:30] VITALS: PULSE 181; RESP 24; O2SAT 96
--- NOTE | 2024-11-11 20:30 | NUR ---
@2025, PT HEART RATE 187, PER ED PA, ADMINISTER 6MG ADENOSINE. NO CHANGE IN HEART RATE AFTER ADMINISTRATION. @2028, 12MG ADENOSINE GIVEN, PT HEART RATE DECREASED TO 118.
[2024-11-11 20:35] LABS: BASOPHILS # (AUTO) 0.02 K/uL (0.00-0.20); BASOPHILS % (AUTO) 0.2 % (0.0-5.0); EOSINOPHILS # (AUTO) 0.04 K/uL (0.00-0.70); EOSINOPHILS % (AUTO) 0.4 % (0.0-8.0); HEMATOCRIT 44.9 % (36-48); IMMATURE GRANULOCYTE ABSOLUTE 0.04 K/uL (0-1); LYMPHOCYTES # (AUTO) 3.8 K/uL (1.0-4.8); LYMPHOCYTES % (AUTO) 36.9 % (21.0-51.0); MEAN CORPUSCULAR HEMOGLOBIN 27.5 pg (27.0-33.0); MEAN CORPUSCULAR HGB CONC 31.4 g/dL (32.0-36.0); MEAN CORPUSCULAR VOLUME 87.5 fL (79-99); MONOCYTES # (AUTO) 1.1 K/uL (0.1-1.0); MONOCYTES % (AUTO) 10.7 % (3.0-13.0); NEUTROPHILS # (AUTO) 5.3 K/uL (1.8-7.7); NEUTROPHILS % (AUTO) 51.4 % (40.0-77.0); PLATELET COUNT (AUTO) 277 K/uL (130-400); RED BLOOD CELL COUNT(AUTO) 5.13 MIL/uL (4.00-5.50); RED CELL DISTRIBUTION WIDTH 14.6 % (11.0-15.5); WHITE BLOOD COUNT (AUTO) 10.4 K/uL (4.8-10.8)
[2024-11-11 20:48] LABS: POTASSIUM 3.9 mmol/L (3.5-5.1)
[2024-11-11 20:53] LABS: MAGNESIUM 1.9 mg/dL (1.80-2.40)
--- NOTE | 2024-11-11 21:00 | NUR ---
PT CARE ASSUMED AT THIS TIME, PT PLACED IN ROOM 19
[2024-11-11 21:08] LABS: APPEARANCE,URINE CLEAR (CLEAR); BILIRUBIN,URINE NEGATIVE (NEGATIVE); COLOR,URINE COLORLESS (YELLOW); GLUCOSE, URINE (UA) NEGATIVE (NEGATIVE); KETONES,URINE NEGATIVE (NEGATIVE); LEUKOCYTE ESTERASE ,URINE 25 Leu/uL (NEGATIVE); NITRATE,URINE NEGATIVE (NEGATIVE); OCCULT BLOOD,URINE LARGE (NEGATIVE); PH,URINE 5.5 (5.0-8.0); PROTEIN,URINE NEGATIVE (NEGATIVE); UROBILINOGEN,URINE 0.2 mg/dL (0.2-1.0)
[2024-11-11 21:09] LABS: ADD UA MICROSCOPIC YES
[2024-11-11 21:11] LABS: BACTERIA,URINE RARE /HPF (None Seen); MUCUS,URINE RARE LPF (None Seen); RBC,URINE 26-50 /HPF (0-1); SQUAMOUS EPITHELIAL CELL,UR RARE /HPF (0-2)
[2024-11-11 21:11] LABS: B-TYPE NATRIURETIC PEPTIDE 72 pg/mL (0-100)
[2024-11-11 21:15] LABS: AMPHET/METH SCREEN,URINE NEGATIVE (NEGATIVE); BARBITURATE SCREEN, URINE NEGATIVE (NEGATIVE); BENZODIAZEPINES SCREEN,URINE NEGATIVE (NEGATIVE); CANNABINOID SCREEN,URINE NEGATIVE (NEGATIVE); COCAINE SCREEN,URINE NEGATIVE (NEGATIVE); OPIATE SCREEN,URINE NEGATIVE (NEGATIVE); PHENCYCLIDINE SCREEN,URINE NEGATIVE (NEGATIVE)
[2024-11-11 21:56] LABS: INR 0.98 (0.85-1.15); PROTHROMBIN TIME 10.6 SEC (9.6-11.6)
[2024-11-11 21:57] LABS: PARTIAL THROMBOPLASTIN TIME 23.1 SEC (26.3-35.5)
--- NOTE | 2024-11-11 22:02 | HMCIMG ---
CHEST 1VW CLINICAL HISTORY: sob COMPARISON: 09/27/2024 TECHNIQUE: Single view of the chest was obtained. FINDINGS: There is pulmonary vascular congestion. The cardiac size and mediastinum are unremarkable. The bony structures are within normal limits. IMPRESSION: Pulmonary vascular congestion.
--- NOTE | 2024-11-11 23:11 | ERN ---
General Chief Complaint: Rapid Heart Rate Stated Complaint: TACHYCARDIA Time Seen by MD: 20:19 Time Seen by Midlevel: 20:19 Source: patient History of Present Illness Initial Comments Patient is a 51-year-old female with a past medical history of SVT presenting to the emergency department with palpitations. Patient had an ablation scheduled for this morning with the procedure was canceled because patient was unable to lay on her back. She reports having three episodes of SVT in the last three months. She states the episodes have been getting more frequent. She reports having an episode of SVT last night where her heart rate was in the 170s. She states the episode resolved on its own. On arrival she specifically denies any chest pain, or any other symptoms at this time. She reports taking 50 mg of metoprolol p.o. prior to arrival. Allergies: Coded Allergies: No Known Drug Allergies (Unverified Allergy, Unknown, 05/01/19) Home Meds Active Scripts Methocarbamol (Robaxin) 750 Mg Tab, 1500 MG PO TID, #30 TAB Prov:MIKE MORFIN MD 10/10/22 Celecoxib (Celecoxib) 400 Mg Capsule, 400 MG PO BID for 10 Days, #20 CAP Prov:MIKE MORFIN MD 10/10/22 Prednisone (Prednisone) 20 Mg Tablet, 40 MG PO DAILY for 5 Days, #10 TAB 0 Refills Prov:HECTOR SORTO MD 02/23/21 Furosemide (Lasix 40Mg Tab) 40 Mg Tablet, 40 MG PO DAILY for 30 Days, #30 TAB 0 Refills Prov:HECTOR SORTO MD 02/23/21 Reported Medications Fluticasone Propionate (Flonase Nasal [place]) 50 Mcg/[place], 1 SPRAY NASAL HS, SPRAY 09/19/21 Lactobacillus Combo No.10 (Probiotic) 1 Each Capsule, 1 EACH PO BID, CAP 09/19/21 Metformin HCl (Metformin HCl) 500 Mg Tablet, 500 MG PO BID, TAB 09/19/21 Aspirin (ASPIRIN 81 MG ECTAB) 81 Mg Ectab, 81 MG PO BID, TAB.EC 09/19/21 [Potassium] No Conflict Check, 45 MG PO HS 09/19/21 [Magnesium] No Conflict Check, 44 MG PO BID 09/19/21 Vitamin E Mixed (Vitamin E) 1,000 Unit Capsule, 1000 UNIT PO DAILY, CAP 09/19/21 Prednisone (Prednisone) 20 Mg Tablet, 20 MG PO DAILY, TAB 09/19/21 Progesterone,Micronized (Progesterone) 200 Mg Capsule, 200 MG PO HS, CAP 09/19/21 Isosorbide Mononitrate (Isosorbide Mononitrate ER) 30 Mg Tab.er.24h, 30 MG PO DAILY, TAB 09/19/21 Sulfamethoxazole/Trimethoprim (Sulfamethoxazole-Tmp Ss Tablet) 1 Each Tablet, 1 EACH PO DAILY, TAB 09/19/21 Fluticasone Furoate (Arnuity Ellipta) 50 Mcg Blst.w.dev, 1 PUFF IH DAILY 09/19/21 Pantoprazole Sodium (Pantoprazole Sodium) 40 Mg Tablet.dr, 40 MG PO DAILY, TAB 09/19/21 Cetirizine HCl (Cetirizine HCl) 10 Mg Tablet, 10 MG PO DAILY, TAB 09/19/21 Furosemide (Furosemide) 40 Mg Tablet, 40 MG PO DAILY, TAB 09/19/21 Montelukast Sodium (Montelukast Sodium) 10 Mg Tablet, 10 MG PO HS, TAB 09/19/21 Metoprolol Tartrate (Metoprolol Tartrate) 25 Mg Tablet, 25 MG PO BID, TAB 09/19/21 Levothyroxine Sodium (Synthroid) 300 Mcg Tablet, 300 MCG PO DAILY, TAB 09/19/21 Fluticasone/Umeclidin/Vilanter (Trelegy Ellipta 200-62.5-25) 1 Each Blst.w.dev, 1 EACH IH DAILY 02/20/21 Magnesium (Magnesium) 30 Mg Tablet, 44 MG PO BID, TAB 02/20/21 Hydroxyzine HCl (Hydroxyzine HCl) 10 Mg Tablet, 10 MG PO HS, TAB 02/20/21 Pantoprazole Sodium (Protonix) 40 Mg Tablet.dr, 40 MG PO DAILY, TAB 02/20/21 Montelukast Sodium (Singulair) 10 Mg Tablet, 10 MG PO HS, TAB 02/20/21 Cetirizine HCl (Cetirizine HCl) 10 Mg Tablet, 10 MG PO DAILY, TAB 02/20/21 [Biocult] No Conflict Check, 1 CAP.SA PO DAILY 02/20/21 Aspirin (Aspirin) 81 Mg Tab.chew, 81 MG PO DAILY, TAB.CHEW 02/20/21 Metoprolol Tartrate (Metoprolol Tartrate) 25 Mg Tablet, 25 MG PO BID, TAB 02/20/21 Thyroid,Pork ([place] Thyroid) 120 Mg Tablet, 120 MG PO ACBKFST, TAB 02/20/21 Past Medical History Past Medical History: Other Medical History Other: TACHYCARDIA, SVT, IRREGULAR VAGINAL BLEEDING Past Surgical History: Other Surgical History Other: D&C Social History Social History: Negative, Lives with family ROS Dictation CONSTITUTIONAL: Negative except for HPI HEAD/FACE: Negative except for HPI EENT: Negative except for HPI RESPIRATORY: Negative except for HPI GASTROINTESTINAL/ABDOMINAL: Negative except for HPI GENITOURINARY: Negative except for HPI MUSCULOSKELETAL: Negative except for HPI INTEGUMENTARY: Negative except for HPI NEUROLOGICAL/PSYCH: Negative except for HPI HEMATOLOGIC/LYMPHATIC: Negative except for HPI All Systems Negative, Except as noted above. 13 point review of systems assessed and all negative except for above. Physical Exam Physical Exam Dictation Vital Signs reviewed General Appearance: Alert, oriented x 3, no acute distress, well developed, nourished. Head and Face: non-traumatic. Eyes: PERRL, pink conjunctivas, eyelid no trauma, anterior chamber with arcus senilis. Ears: Pinnas intact and no signs of trauma or erythema ear canals clear and no discharge TM no erythema Nose: No discharge, no bleeding. Oropharynx: Mouth normal, tongue pink, pharynx clear,no erythema, tonsils no exudates, no abscesses noted, mucous membrane moist Neck: Supple, non-tender, no thyromegaly, no masses, no JVD, no bruits Breast:Deferred Chest:No tenderness, no crepitus, no paradoxical movement, no retractions Lungs:Clear, well-ventilated, symmetric, no rales, no wheezing, no rhonchi, no stridor, good breath sounds bilaterally Heart: Regular rate, regular rhythm, no murmur, no gallops Vascular: no peripheral edema, Abdomen: Soft, positive bowel sounds, nondistended, no guarding, nontender, no rebound, no masses no hepatomegaly, no splenomegaly, no Aleman's sign, no hernias. Rectal: Deferred Genital: Deferred Neurological: Normal speech, motor function intact, sensory function intact Musculoskeletal: Neck nontender, full range of motion, back nontender, full range of motion, Extremities: nontender, full range of motion Skin: Color pink, dry, no turgor, no rash, no lacerations, no abrasions, no contusions. Lymphatic: Deferred Results Laboratory and Microbiology Lab and Micro Result Laboratory Tests Test 11/11/24 20:28 11/11/24 20:55 White Blood Count 10.4 K/uL (4.8-10.8) Red Blood Count 5.13 MIL/uL (4.00-5.50) Hemoglobin 14.1 g/dL (12.0-16.0) Hematocrit 44.9 % (36-48) Mean Corpuscular Volume 87.5 fL (79-99) Mean Corpuscular Hemoglobin 27.5 pg (27.0-33.0) Mean Corpuscular Hemoglobin Concent 31.4 g/dL (32.0-36.0) L Red Cell Distribution Width 14.6 % (11.0-15.5) Platelet Count 277 K/uL (130-400) Mean Platelet Volume 9.8 fL (7.5-10.5) Immature Granulocyte % (Auto) 0.4 % (0-1) Neutrophils (%) (Auto) 51.4 % (40.0-77.0) Lymphocytes (%) (Auto) 36.9 % (21.0-51.0) Monocytes (%) (Auto) 10.7 % (3.0-13.0) Eosinophils (%) (Auto) 0.4 % (0.0-8.0) Basophils (%) (Auto) 0.2 % (0.0-5.0) Neutrophils # (Auto) 5.3 K/uL (1.8-7.7) Lymphocytes # (Auto) 3.8 K/uL (1.0-4.8) Monocytes # (Auto) 1.1 K/uL (0.1-1.0) H Eosinophils # (Auto) 0.04 K/uL (0.00-0.70) Basophils # (Auto) 0.02 K/uL (0.00-0.20) Absolute Immature Granulocyte (auto 0.04 K/uL (0-1) Nucleated Red Blood Cells 0.0 % (0.0-0.19) Prothrombin Time 10.6 SEC (9.6-11.6) Prothromb Time International Ratio 0.98 (0.85-1.15) Activated Partial Thromboplast Time 23.1 SEC (26.3-35.5) L Sodium Level 141 mmol/L (136-145) Potassium Level 3.9 mmol/L (3.5-5.1) Chloride Level 103 mmol/L (101-111) Carbon Dioxide Level 28 mmol/L (21-32) Blood Urea Nitrogen 30 mg/dL (7-18) H Creatinine 1.0 mg/dL (0.5-1.0) Glomerular Filtration Rate Calc 65 mL/min (>90) Random Glucose 108 mg/dL (70-105) H Total Calcium 9.3 mg/dL (8.5-10.1) Magnesium Level 1.90 mg/dL (1.80-2.40) Total Creatine Kinase 55 U/L (21-232) Troponin I High Sensitivity 7 ng/L (4-50) B-Type Natriuretic Peptide 72 pg/mL (0-100) Urine Color COLORLESS (YELLOW) Urine Appearance CLEAR (CLEAR) Urine pH 5.5 (5.0-8.0) Urine Specific [place] 1.006 (1.001-1.031) Urine Protein NEGATIVE mg/dL (NEGATIVE) Urine Glucose (UA) NEGATIVE mg/dL (NEGATIVE) Urine Ketones NEGATIVE mg/dL (NEGATIVE) Urine Occult Blood LARGE (NEGATIVE) H Urine Nitrate NEGATIVE (NEGATIVE) Urine Bilirubin NEGATIVE mg/dL (NEGATIVE) Urine Urobilinogen 0.2 mg/dL (0.2-1.0) Urine Leukocyte Esterase 25 Izabela/uL (NEGATIVE) H Urine RBC 26-50 /HPF (0-1) H Urine WBC 11-25 /HPF (0-1) H Urine Squamous Epithelial Cells RARE /HPF (0-2) Urine Bacteria RARE /HPF (None Seen) Urine Opiates Screen NEGATIVE (NEGATIVE) Urine Barbiturates Screen NEGATIVE (NEGATIVE) Urine Phencyclidine Screen NEGATIVE (NEGATIVE) Urine Amphetamines Screen NEGATIVE (NEGATIVE) Urine Benzodiazepines Screen NEGATIVE (NEGATIVE) Urine Cocaine Screen NEGATIVE (NEGATIVE) Urine Marijuana (THC) Screen NEGATIVE (NEGATIVE) Labs Reviewed?: Yes MDM MDM: Differential diagnosis: SVT, ACS, electrolyte abnormality, anemia, dehydration Rationale: Tests considered and ordered secondary to shared decision making include: Previous outside records reviewed: Old ER visits. Risk of complication and/or morbidity or mortality of patient management: None Medications-Per medication reconciliation Need for hospitalization: Patient does meet criteria for hospitalization. Need for emergency major/minor surgery: No There are no social concerns with this patient. Prescription drug management Prescriptions will include symptomatic care Patient's prior external medical records from other ER visits were reviewed by me as indicated. Prior testing and results from previous visits were reviewed. Prior tests were taken into account with medical decision making and resource utilization, independent historian/historians were used to obtain complete medical history. I independently interpreted the test that were performed, results were reviewed by me and considered findings on radiology if ordered. Medical management and examination interpretation discussions were had by me with other qualified healthcare professionals as indicated for the patient's care. ED Course Orders Procedure Category Date Status Time B-Type Natriuretic LAB 11/11/24 Complete Peptide 20:19 Basic Metabolic Panel LAB 11/11/24 Complete 20:19 Cbc With Differential LAB 11/11/24 Complete 20:19 Drug Screen Urine LAB 11/11/24 Complete 20:19 Urinalysis Profile LAB 11/11/24 Complete 20:19 Pt And Ptt LAB 11/11/24 Complete 20:19 Troponin I High LAB 11/11/24 Complete Sensitivity 20:19 Chest 1vw RAD 11/11/24 Resulted 20:19 Magnesium LAB 11/11/24 Complete 20:19 Creatine Kinase, Total LAB 11/11/24 Complete 20:19 Adenosine 6mg Vial PHA 11/11/24 Complete (Adenocard 6mg Vial) 20:20 12 Lead Ekg Tracing- EKG 11/11/24 Logged Technical 20:23 Adenosine 6mg Vial PHA 11/11/24 Complete (Adenocard 6mg Vial) 20:27 Culture Urine GAUDENCIO 11/11/24 In Process 21:19 Adenosine 6mg Vial PHA 11/11/24 Complete (Adenocard 6mg Vial) 23:00 Adenosine 6mg Vial PHA 11/11/24 Complete (Adenocard 6mg Vial) 23:00 Current Medications Medications (Trade) Dose Ordered Sig/Naga Route PRN Reason Start Time Stop Time Status Last Admin Dose Admin Adenosine (Adenocard 6mg Vial) 6 mg ONCE ONCE IV 11/11/24 23:00 11/11/24 23:01 DC 11/11/24 22:53 Adenosine (Adenocard 6mg Vial) 6 mg STK-MED ONCE IV 11/11/24 20:20 11/11/24 20:20 DC Adenosine (Adenocard 6mg Vial) 6 mg STK-MED ONCE IV 11/11/24 20:27 11/11/24 20:28 DC Adenosine (Adenocard 6mg Vial) 12 mg ONCE ONCE IV 11/11/24 23:00 11/11/24 23:01 DC 11/11/24 22:54 Vital Signs Date Time Temp Pulse Resp B/P (MAP) Pulse Ox O2 Delivery O2 Flow Rate FiO2 11/11/24 22:54 183 150/68 11/11/24 22:53 187 125/63 11/11/24 22:15 98 21 130/71 96 Nasal Cannula* 2 28 11/11/24 21:00 106 18 117/73 95 Nasal Cannula* 2 28 11/11/24 20:30 181 24 N/Cannula Low lpm 4.0 36 11/11/24 20:29 116 24 117/59 100 Nasal Cannula* 2 28 11/11/24 20:26 187 24 150/68 98 Nasal Cannula* 2 28 11/11/24 20:20 98.8 187 24 125/63 Nasal Cannula* 2 28 11/11/24 20:11 98.8 192 24 186/110 96 Room Air 0 DX & DISP Disposition: Inpatient Decision to Admit Date: Nov 11, 2024 Departure Impression: Primary Impression: SVT (supraventricular tachycardia) Additional Impression: Morbid obesity with BMI of 60.0-69.9, adult Condition: Stable Referrals: POLINA BECERRA MD (PCP) I have reviewed the case, and I agree with, Diagnosis and Plan I performed the substantive portion of the visit. I have reviewed and personally made and approve the management plan that is documented in the note by myself or the MANNIE. I acknowledge for responsibility for the patient's management plan. BENJAMIN ALFARO Nov 11, 2024 23:11
[2024-11-11] MEDS ORDERED: acetaMINOPHEN 325 MG TAB PO PRN (23:30)
[2024-11-12] MEDS: ondanSETRON 4MG INJ IVP PRN (00:26)
--- NOTE | 2024-11-12 01:04 | NUR ---
HOME MEDS NOT AVAILBLE AT THIS TIME. PT WAS EDUCATED ABOUT IMPORTANCE OF MEDICATION RECONCILIATION.
--- NOTE | 2024-11-12 07:13 | NUR ---
REPORT GIVEN TO IVAN ALBA AT THIS TIME
[2024-11-12] MEDS: INSULIN humuLIN R 100 UNIT/ML 3ML SQ SCH (07:30)
--- NOTE | 2024-11-12 07:44 | EKG ---
[facility] Test Date: 2024-11-11 Test Time: 20:35:00 Pat Name: TAWANNA FARRELL Department: EDHIP Room: ED 19 Gender: F Meter Technician: [id number] : 1965 Requested By: JASBIR MEDINA Order Number: [id number] Reading MD: Matt Vega Measurements Intervals [place] Rate: 109 P: 46 WV: 151 QRS: -66 QRSD: 85 T: 65 QT: 338 QTc: 455 Interpretive Statements Sinus tachycardia Probable left atrial enlargement Left anterior fascicular block Low voltage, precordial leads Compared to ECG 09/27/2024 06:32:24 Left anterior fascicular block now present Low QRS voltage now present Myocardial infarct finding no longer present Electronically Signed On 11-12-2024 14:05:20 CRM SOLUTION ARCHITECT by Matt Vega Please click the below link to view image of tracing.
[2024-11-12 07:54] LABS: BASOPHILS # (AUTO) 0.01 K/uL (0.00-0.20); BASOPHILS % (AUTO) 0.1 % (0.0-5.0); EOSINOPHILS # (AUTO) 0.05 K/uL (0.00-0.70); EOSINOPHILS % (AUTO) 0.7 % (0.0-8.0); HEMATOCRIT 43.2 % (36-48); IMMATURE GRANULOCYTE ABSOLUTE 0.04 K/uL (0-1); LYMPHOCYTES # (AUTO) 2.2 K/uL (1.0-4.8); LYMPHOCYTES % (AUTO) 29.9 % (21.0-51.0); MEAN CORPUSCULAR HEMOGLOBIN 27.3 pg (27.0-33.0); MEAN CORPUSCULAR HGB CONC 31.5 g/dL (32.0-36.0); MEAN CORPUSCULAR VOLUME 86.6 fL (79-99); MONOCYTES % (AUTO) 12.7 % (3.0-13.0); NEUTROPHILS # (AUTO) 4.2 K/uL (1.8-7.7); NEUTROPHILS % (AUTO) 56.1 % (40.0-77.0); PLATELET COUNT (AUTO) 232 K/uL (130-400); RED BLOOD CELL COUNT(AUTO) 4.99 MIL/uL (4.00-5.50); RED CELL DISTRIBUTION WIDTH 14.7 % (11.0-15.5); WHITE BLOOD COUNT (AUTO) 7.5 K/uL (4.8-10.8)
[2024-11-12 08:04] LABS: CREATININE 0.8 mg/dL (0.5-1.0); MAGNESIUM 2.1 mg/dL (1.80-2.40); POTASSIUM 4.5 mmol/L (3.5-5.1)
--- NOTE | 2024-11-12 09:52 | EKG ---
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
--- NOTE | 2024-11-12 10:55 | PN ---
[facility] Cardiology Progress Note Cardiology progress note dictated for Matt Mary MD Date of service 11/12/2024 59-year-old female presented for evaluation of tachycardia. Has a history of SVT. According to the nurse at bedside who requested consult patient is under Dr. Guillermo's care. She was scheduled at [facility] for ablation yesterday but was unable to lie down flat due to her weight. Procedure was canceled and she was told could re-evaluate her in one month. She asked to consult with [facility] if procedure could be done sooner. Explained our electrophysiologists appointment will take one month or greater. Advised nursing staff to contact Dr. Guillermo for further evaluation. MATT ALEXANDER Nov 12, 2024 10:55 MATT MARY MD Nov 13, 2024 05:39
--- NOTE | 2024-11-12 12:13 | NUR ---
DR. MARY NOTIFIED OF CONSULT, PT IS ESTABLISED W/ DR. PRESCOTT, PT STATES SHE WAS SICK PRIOR APPT TO HAVE ABLATION W/ DR REA WAS CANCELLED YESTERDAY, PT DOES NOT WANT TO SEE DR. MONTESINOS, NOTIFIED DR. RODRIGUEZ, [facility] DR. 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 PRESCOTT OFFICE.
[2024-11-12] MEDS: cefTRIAXone 1G VIAL IVPB SCH (12:23)
--- NOTE | 2024-11-12 13:27 | NUR ---
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 Pt states she is independent of ADLS, no DME or in home care services. PCP is Kathy Miranda. Per pt, she will dc home at ar, and with transport. Addendum: 11/12/24 at 1329 by ADOLFO ZARATE Amended: Links added.
[2024-11-12] MEDS ORDERED: SEMA1PEN3 SQ (16:27)
[2024-11-12] MEDS ORDERED: BUDE10.7 IH (16:27)
[2024-11-12] MEDS ORDERED: FERR-82 PO (16:27)
[2024-11-12 16:55] VITALS: BP 145/82; PULSE 94; RESP 20; TEMP 98.4
[2024-11-12] MEDS ORDERED: GABA-529 PO (17:28)
[2024-11-12 17:55] VITALS: O2SAT 96
[2024-11-12 19:38] VITALS: BP 147/80; PULSE 89; RESP 18; TEMP 98.3
[2024-11-12 19:45] VITALS: O2SAT 97
[2024-11-12] MEDS: FORMOTEROL IH SCH (21:00)
[2024-11-12] MEDS: BUDESONIDE IH SCH (21:00)
[2024-11-12] MEDS: GLYCOPYR IH SCH (21:00)
[2024-11-12] MEDS: monteLUKAST sodIUM 10 MG TAB PO SCH (21:27)
[2024-11-12] MEDS: GABApentin 100 MG CAPSULE PO SCH (21:27)
[2024-11-12] MEDS: LACTOBACILLUS RHAMNOSUS GG 1 EACH CAP.SPRINK PO SCH (21:27)
[2024-11-12] MEDS: metoPROLOL tartRATE 25 MG TAB PO SCH (21:27)
[2024-11-12] MEDS ORDERED: METF-444 PO (21:33)
[2024-11-13 00:32] VITALS: BP 136/92; PULSE 97; RESP 18; TEMP 98.5
--- NOTE | 2024-11-13 02:16 | HP ---
HISTORY AND PHYSICAL DATE OF SERVICE: 11/11/2024 PRESENTING COMPLAINT: Palpitation. HISTORY OF PRESENT ILLNESS: This is a 59-year-old female with morbid obesity, SVT and heart failure, who presented to the hospital with palpitation. The patient has history of SVT and was supposed to have ablation done yesterday by Dr. Guillermo. The patient claimed procedure was canceled since she has upper respiratory tract infection and unable to lay flat. The patient now came to the Emergency Room with palpitation. EKG in the Emergency Room shows SVT with rate in the 180s. The patient denies chest pain, palpitation or orthopnea. No fever, no chills. The patient has urinary frequency and urinalysis was positive, which the patient attributed to Lasix. No diarrhea or abdominal pain. PAST MEDICAL HISTORY: * SVT. * Morbid obesity. * CHF. PAST SURGICAL HISTORY: * Dilatation and curettage. * Endometrial biopsy. * Right leg surgery. ALLERGIES: No known drug allergy. HOME MEDICATIONS: Include, * Metoprolol. * Lasix. * Azelastine. SOCIAL HISTORY: . No alcohol, tobacco or illicit drug use. FAMILY HISTORY: Noncontributory. REVIEW OF SYSTEMS: CONSTITUTIONAL: No fever, no chills, no weight loss or night sweats. EYES: No eye pain, no photophobia or diplopia. HENT: No sore throat, no rhinorrhea or earache. NECK: No neck pain or neck swelling. RESPIRATORY: No cough. No hemoptysis or pleuritic pain. CARDIOVASCULAR: No chest pain, no orthopnea. Positive for palpitations. GASTROINTESTINAL: Denied nausea, vomiting, or abdominal pain. GENITOURINARY: No dysuria. Positive for urinary frequency. CENTRAL NERVOUS SYSTEM: No headache, dyspnea, or slurred speech. PSYCHIATRY: No depression. No suicidal ideation. MUSCULOSKELETAL: No joint pain or joint swelling. PHYSICAL EXAMINATION: GENERAL: A middle-aged female, awake, not in distress. VITAL SIGNS: Temperature 98.8, pulse 187, respiratory rate 18, BP 134/78. EYES: No icterus. Pupils equal and reactive. HENT: No oral thrush seen. Moist oral mucosa. NECK: Supple, no JVD or thyromegaly. LUNGS: Good air entry. No rales, no rhonchi. CARDIOVASCULAR: S1, S2 regular. No murmur heard. ABDOMEN: Morbidly obese, soft, nontender. Bowel sound is present. CENTRAL NERVOUS SYSTEM: The patient is awake, alert, oriented x 3. No focal deficits. SKIN: No rashes, no itchiness. LYMPHATIC: No peripheral lymphadenopathy. BACK: No deformity, no pressure ulcer. EXTREMITIES: Chronic lymphedema of both lower extremities. No signs of active infection. LABORATORY DATA: Sodium 141, potassium 3.9, BUN 30, creatinine 1.0. WBC 10.4, hemoglobin 14.1, platelets are 277. Urine toxicology negative. Urine culture -- wbc's 25, leukocytes 25. RADIOLOGY: Chest x-ray shows vascular congestion. ASSESSMENT: A 59-year-old female presenting with palpitation. CURRENT PROBLEMS: Include, * Supraventricular tachycardia. * Morbid obesity. * History of congestive heart failure. * Vascular congestion. * Urinary tract infection. PLAN: * Admit the patient to telemetry unit. * Monitor electrolytes and correct as needed. * Home antiarrhythmic agents will be resumed. * Start the patient on ceftriaxone. * Cardiology evaluation. * Tylenol as needed for pain or fever. * Zofran as needed for nausea and vomiting. TID: [id number] RECEIPT: [id number] [facility]
[2024-11-13 04:13] VITALS: BP 155/60; PULSE 94; RESP 18; TEMP 98.2
[2024-11-13] MEDS: levoTHYROxine 150 MCG TABLET PO SCH (06:08)
[2024-11-13] MEDS ORDERED: LEVO112C4 PO (06:15)
--- NOTE | 2024-11-13 06:15 | NUR ---
PATIENT REFUSED SYNTHROID 300MG SCHEDULED. STATED SHE DOES NOT TAKE THAT DOSE. STATED SHE TAKES LEVOTHYROXINE 112MCG, [address] RODRIGUEZ TO ASK IF DOSAGE MAY BE CHANGED.
--- NOTE | 2024-11-13 07:39 | NUR ---
RECEIVED RESPONSE FROM DR. RODRIGUEZ. STATED BRETT TO RESUME LEVOTHYROXINE 112MCG, 2 TAB PO DAILY. D/C SYNTHROID 300MG DAILY.
--- NOTE | 2024-11-13 07:44 | NUR ---
AT THIS TIME MADE CALL TO DR. PRESCOTT OFFICE ANSWERING SERVICE. Addendum: 11/13/24 at 0746 by SAIRA ALFARO RN RN SPOKE TO CHANDA WITH ANSWERING SERVICE.
[2024-11-13] MEDS: levoTHYROxine 112 MCG TABLET PO SCH (07:49)
--- NOTE | 2024-11-13 08:09 | NUR ---
SPOKE WITH DR. MARTINES VIA TELEPHONE. STATED HE WILL COME VISIT PATIENT AT 1300- 1400S TODAY.
[2024-11-13 08:22] VITALS: BP 137/88; PULSE 92; RESP 18; TEMP 98.6
[2024-11-13] MEDS: FERROUS SULFATE 325 MG TABLET.DR PO SCH (08:42)
[2024-11-13] MEDS: furoSEMIDE 40 MG TABLET PO SCH (08:42)
[2024-11-13] MEDS: ASPIRIN 81MG CHEW TAB PO SCH (08:42)
[2024-11-13] MEDS: ISOSORBIDE MONO 30MG SR TAB PO SCH (08:42)
[2024-11-13] MEDS: ceTIRIzine HCL 5 MG TABLET PO SCH (08:43)
--- NOTE | 2024-11-13 08:43 | NUR ---
PATIENT STATES THAT SHE PREFERS TO TAKE HER HOME MEDICATION SUPPLY BECAUSE SOME OF THE MEDICATIONS ARE BRAND NAMES AND SHE DOESN'T WANT TO CHANGE. PATIENT TOOK HOME SUPPLY MORNING MEDICATIONS AT THIS TIME.
[2024-11-13 08:57] VITALS: O2SAT 95
--- NOTE | 2024-11-13 11:27 | NUR ---
Nutritional Note: Chart, meds, and labs Reviewed. Recommend: -Low sodium diet -double protein w/ trays -30gm cc diet. -Check folate, iron, vit b12, and Vit D levels to rule out deficiencies. -Outpatient RD for weight management program -Consider for sleep study to evaluate for POOJA. If diagnosed with POOJA initiate Cpap-has been shown to significantly support wt loss efforts in pts with morbid obesity and improve overall metabolic health. - Electrolyte replacements per protocol -Monitor PO intake%, wt, and labs -If No BM >3days consider bowel stimulant. -Educate prior to d/c on low Carb diet as requested by pt. - Please notify RD if additional nutrition concerns arise. SEE RD Nutritional Assessment for additional assessment information. Addendum: 11/13/24 at [address] Amended: Links added.
[2024-11-13 11:40] VITALS: BP 123/78; PULSE 84; RESP 18; TEMP 98.3
--- NOTE | 2024-11-13 15:42 | NUR ---
PATIENT ALERT AND ORIENTEDX4, WITH SPOUSE AT BEDSIDE, BEING DISCHARGED HOME. PATIENT HAS HER ABLATION RESCHEDULED FOR SATURDAY, DR. MARTINES OFFICE CALLED AND RESCHEDULED THE PROCEDURE. PATIENT EDUCATED TO TAKE PRESCRIPTION TO PHARMACY FOR ANTIBIOTIC TREATMENT FOR UTI. IV REMOVED WITHOUT COMPLICATIONS. ALL QUESTIONS ANSWERED, PATIENT AND SPOUSE VERBALIZED COMPLETE UNDERSTANDING.
--- NOTE | 2024-11-13 20:33 | DS ---
CAS ELIAS [facility] Nov 13, 2024 20:33
[2024-11-13] MEDS ORDERED: metoPROLOL tartRATE 50 MG TAB PO SCH (21:00)
[2024-11-14] MEDS ORDERED: levoTHYROxine 112 MCG TABLET PO SCH (06:30)
[2024-11-19] MEDS ORDERED: SEMAGLUTIDE 0.5 MG SQ SCH (09:00)
== END 2024-11-13 15:45 | disposition home or self-care (01) | DRG 309 ==
LOC: EDH 20:10 → EDHIP 23:26 → 2DH 11-12 16:55
PROVIDERS: ADMIT Internal Medicine Infectious Disease; ATTEND Internal Medicine Infectious Disease
DX: I47.10 Supraventricular tachycardia, unspecified (principal); N39.0 Urinary tract infection, site not specified; Z68.45 Body mass index [BMI] 70 or greater, adult; E66.01 Morbid (severe) obesity due to excess calories; I50.9 Heart failure, unspecified; J06.9 Acute upper respiratory infection, unspecified; Z53.9 Procedure and treatment not carried out, unspecified reason; R00.2 Palpitations
CPT/HCPCS: 36415; 71045; 80048; 80305; 81001; 82550; 82948; 83735; 83880; 84484; 85025; 85610; 85730; 87086; 87186; 93005; 96374; 99285; G0378; J0153; J0696; J2405